=== PATIENT | female | born 1950 | race African-American/Black ===

== ENCOUNTER 2021-05-28 13:12 | Observation (INO) ==
[2021-05-28 13:16] VITALS: BMI 25.8
[2021-05-28] MEDS ORDERED: NS 1,000 ML IV 1,000 ML ONE (13:21)
[2021-05-28] MEDS ORDERED: PROTONIX INJ 40 MG VIAL IVP ONE (14:12)
[2021-05-28] MEDS ORDERED: ZOFRAN INJ 4 MG VIAL IVP ONE (14:12)
--- NOTE | 2021-05-28 14:12 | DR.DIARMA ---
HPI <Beranrd Man - Last Filed: 05/30/21 08:18> Time seen Time Seen by Provider: 05/28/21 13:58 PCP Primary Care Physician: EVANGELISTA Complaint Chief Complaint Doctor Comments: 71 y/o female presents for evaluation. Seen here 3 days ago, was + for Covid then. Has been ill x 2 weeks. + nausea, vomiting, diarrhea. Unable to keep food down. Denies abdominal pain. Having weakness, low grade temp, chills. Hasa slight cough, non productive. Denies dyspnea. Had low potassium here 3 days ago. Was given IV, PO potassium, passed an intact pill today. Chief Complaint:: PT C/O N/V/D THAT HAS BEEN GOING ON FOR APPROX 2 WEELS. PATIENT CAME TO ED THIS PAST THURSDAY AND REC'D FLUIDS AND WAS SENT HOME. PATIENTS FAMILY STATES PATIENT IS STARVING AND UNABLE TO KEEP ANYTHING IN HER. PATIENT IS ALSO N OTED TO BE RUNNING LOW GRADE TEMP. PATIENT STATES SHE JUST WANTS THE INFUSION AND GET BETTER COVID-19 Coronavirus risk:travel/contact w/high risk person: No Has patient experienced Coronavirus symptoms: Yes Coronavirus symptoms experienced: Fever and Coughing Reviewed Nurses notes reviewed: Yes Source History Provided: Patient and Family Member Mode of Arrival Mode of Arrival: Wheelchair Timing Onset of Chief Complaint: 05/14/21 Came on: Gradually PMH <Bernard Seymourmary - Last Filed: 05/30/21 08:18> PMH Past Medical History: Yes Past Medical History: Hypertension Past Surgical History: No Family History History of Family Medical Conditions: No Social History Does any household member use tobacco: No Alcohol Use: None Do you use any recreational Drugs:: No Lives With: Family Lives Where: Home Travel Risk Coronavirus risk:travel/contact w/high risk person: No Has patient experienced Coronavirus symptoms: No Infectious screening In the last 2 months have you had wt loss of >10#?: NO Have you had fever, night sweats or hemotysis?: No Have you traveled outside the country in the last 6 months?: No Isolation: Droplet ROS <Bernard Seymourmary - Last Filed: 05/30/21 08:18> Review of Systems Constitutional: Chills, Fever and Weakness Eyes: No Symptoms Reported ENTM: No Symptoms Reported Respiratoy: Non-Productive Cough; negative Short of Breath Cardiovascular: No Symptoms Reported Gastrointestinal/Abdominal: Diarrhea, Nausea and Vomiting Genitourinary: No Symptoms Reported Neurological: Weakness Musculoskeletal: No Symptoms Reported Integumentary: No Symptoms Reported Hematologic/Lymphatic: No Symptoms Reported Psychiatric: No Symptoms Reported All Other Systems: Reviewed and Negative PE <Bernard Donovan - Last Filed: 05/30/21 08:18> Vital Signs Vitals: Temperature 99.7 F Pulse Rate 105 Respiratory Rate 21 Blood Pressure 125/60 O2 Sat by Pulse Oximetry 95 General Limitations: No Limitations General Appearance: Alert and In No Apparent Distress Head Head Exam: Normal Inspection Eyes Eye exam: Normal Appearance, PERRL and EOMI ENT ENT Exam: Normal Exam and Mucous Membranes Moist Neck Neck Exam: Normal Inspection and Full ROM Chest Chest Inspection: Normal Inspection Respiratory Respiratory Exam: Normal Lung Sounds Bilat; negative Accessory Muscle Use and Respiratory Distress Respiratory Exam: Bilateral: Clear to Auscultation Cardiovascular Cardiovascular Exam: Regular Rate, Normal Rhythm and Normal Heart Sounds Abdominal Exam Abdominal Exam: Normal Inspection, Normal Bowel Sounds and Soft; negative Tenderness Extremeties Extremities Exam: Normal Inspection; negative Edema Back Back Exam: Normal Inspection; negative (R) CVA Tenderness and (L) CVA Tenderness Neurologic Neurological Exam: Alert, Oriented X3 and CN II-XII Intact; negative Motor Sensory Deficit Psychiatric Psychiatric Exam: Normal Affect Skin Skin Exam: Warm <Bonita Robison - Last Filed: 05/28/21 21:40> Vital Signs Vitals: Temperature 99.7 F Pulse Rate 105 Respiratory Rate 21 Blood Pressure 125/60 O2 Sat by Pulse Oximetry 95 [facility] <Bernard Donovan - Last Filed: 05/30/21 08:18> Differential Diagnosis Differential Diagnosis: Diarrhea Bacterial, Diarrhea Viral and Other (comments) (dehydration, electrolyte disorder) COURSE <Bernardhoward Man - Last Filed: 05/30/21 08:18> Treatment Treatment: Pt ill x 2 weeks, recently Covid +. Having profuse diarrhea. W/u initiiated. Given IV fluids. CT shows diffuse colitis. Discussed with covering attending, will be admitted. Was signed over to Dr Robison for admission orders. <Bonita Robison - Last Filed: 05/28/21 21:40> Treatment Treatment: [address] Man; pt needs admission orders; Dr Harris aware of admission. 2136 spoke with daughter and pt explaining results and admission for fluids and abx; they both report understanding. ROR <Bernard Man - Last Filed: 05/30/21 08:18> Labs Reviewed Laboratory Results Reviewed?: Yes Result Diagrams: 05/30/21 05:24 05/30/21 05:24 Laboratory: 05/28/21 15:10 Urine,Catheterized Urine Culture - Preliminary WBC 7.2 X10^3/uL (3.6-10.0) 05/28/21 14:58 RBC 4.09 X10^6/uL (3.5-5.4) 05/28/21 14:58 Hgb 11.6 g/dL (12.0-16.0) L 05/28/21 14:58 Hct 34.5 % (36.0-47.0) L 05/28/21 14:58 MCV 84.5 fL (80.0-100.0) 05/28/21 14:58 MCH 28.3 pg (27.0-34.0) 05/28/21 14:58 MCHC 33.5 g/dL (33.0-35.0) 05/28/21 14:58 RDW 14.8 % (11.6-16.5) 05/28/21 14:58 Plt Count 162 X10^3/uL (150.0-450.0) 05/28/21 14:58 Plt Count Comment Adequate (ADEQUATE) 05/28/21 14:58 MPV 8.7 fL (7.4-11.0) 05/28/21 14:58 Neut % (Auto) 68.6 % (42.0-75.0) 05/28/21 14:58 Lymph % (Auto) 6.1 % (21.0-51.0) L 05/28/21 14:58 Sebastian % (Auto) 22.4 % (0.0-13.0) H 05/28/21 14:58 Eos % (Auto) 0.3 % (0.9-2.9) L 05/28/21 14:58 Baso % (Auto) 2.6 % (0.2-1.0) H 05/28/21 14:58 Neut # (Auto) 4.9 x10^3/uL (2.2-4.8) H 05/28/21 14:58 Lymph # (Auto) 0.4 X10^3/uL (1.3-2.9) L 05/28/21 14:58 Sebastian # (Auto) 1.6 x10^3/uL (0.3-0.8) H 05/28/21 14:58 Eos # (Auto) 0.0 x10^3/uL (0.0-0.2) 05/28/21 14:58 Baso # (Auto) 0.2 X10^3/uL (0.0-0.1) H 05/28/21 14:58 Absolute Nucleated RBC 0.1 /100WBC 05/28/21 14:58 Total Counted 100 05/28/21 14:58 Neutrophils % (Manual) 65 % (39-76) 05/28/21 14:58 Lymphocytes % (Manual) 19 % (13-43) 05/28/21 14:58 Monocytes % (Manual) 16 % (4-9) H 05/28/21 14:58 Plt Morphology Comment Normal (NORMAL) 05/28/21 14:58 RBC Morphology Normal (NORMAL) 05/28/21 14:58 Sodium 136 mmol/L (136-145) 05/28/21 14:58 Corrected Sodium TNP 05/28/21 14:58 Potassium 4.3 mmol/L (3.5-5.1) 05/28/21 14:58 Chloride 101 mmol/L (98-107) 05/28/21 14:58 Carbon Dioxide 28.2 mmol/L (21-32) 05/28/21 14:58 BUN 12 mg/dL (7-18) 05/28/21 14:58 Creatinine 0.75 mg/dL (0.55-1.02) 05/28/21 14:58 Est GFR (MDRD) Af Amer > 60 (>60) 05/28/21 14:58 Est GFR (MDRD) Non-Af > 60 (>60) 05/28/21 14:58 Glucose 91 mg/dL (65-99) 05/28/21 14:58 Calcium 8.0 mg/dL (8.5-10.1) L 05/28/21 14:58 Corrected Calcium 9.6 mg/dL (8.5-10.1) 05/28/21 14:58 Total Bilirubin 1.80 mg/dL (0.2-1.0) H 05/28/21 14:58 AST 31 Units/L (15-37) 05/28/21 14:58 ALT 16 Units/L (12-78) 05/28/21 14:58 Alkaline Phosphatase 78 Units/L (46-116) 05/28/21 14:58 Total Protein 5.4 g/dL (6.4-8.2) L 05/28/21 14:58 Albumin 2.0 g/dL (3.4-5.0) L 05/28/21 14:58 Globulin 3.4 g/dL (2.5-4.5) 05/28/21 14:58 Albumin/Globulin Ratio 0.6 Ratio (1.1-2.1) L 05/28/21 14:58 Lipase 22 Units/L (73-393) L 05/28/21 14:58 Specimen Type Catherized urine 05/28/21 15:10 Urine Color [place] (YELLOW) 05/28/21 15:10 Urine Appearance Clear (CLEAR) 05/28/21 15:10 Urine pH 5.0 (5.0 - 8.0) 05/28/21 15:10 Ur Specific [place] 1.020 (1.000-1.030) 05/28/21 15:10 Urine Protein 3+ (NEGATIVE) 05/28/21 15:10 Urine Glucose (UA) Negative (NEGATIVE) 05/28/21 15:10 Urine Ketones 1+ (NEGATIVE) 05/28/21 15:10 Urine Occult Blood 1+ (NEGATIVE) 05/28/21 15:10 Urine Nitrite Positive (NEGATIVE) 05/28/21 15:10 Urine Bilirubin 2+ (NEGATIVE) 05/28/21 15:10 Urine Urobilinogen 3+ (NORMAL) 05/28/21 15:10 Ur Leukocyte Esterase 1+ (NEGATIVE) 05/28/21 15:10 Urine RBC 0-2 /HPF (0-3) 05/28/21 15:10 Urine WBC 5-10 /HPF (0-5) A 05/28/21 15:10 Ur Squamous Epith Cells Rare /HPF (NEGATIVE) 05/28/21 15:10 Amorphous Sediment 1+ /HPF (NEGATIVE) 05/28/21 15:10 Urine Bacteria Trace /HPF (NEGATIVE) 05/28/21 15:10 Urine Mucus Few /HPF (NEGATIVE) 05/28/21 15:10 Ur Culture Indicated? Yes/culture set up 05/28/21 15:10 <Bonita Robison - Last Filed: 05/28/21 21:40> Labs Reviewed Laboratory Results Reviewed?: Yes Laboratory: 05/28/21 15:10 Urine,Catheterized Urine Culture - Preliminary WBC 7.2 X10^3/uL (3.6-10.0) 05/28/21 14:58 RBC 4.09 X10^6/uL (3.5-5.4) 05/28/21 14:58 Hgb 11.6 g/dL (12.0-16.0) L 05/28/21 14:58 Hct 34.5 % (36.0-47.0) L 05/28/21 14:58 MCV 84.5 fL (80.0-100.0) 05/28/21 14:58 MCH 28.3 pg (27.0-34.0) 05/28/21 14:58 MCHC 33.5 g/dL (33.0-35.0) 05/28/21 14:58 RDW 14.8 % (11.6-16.5) 05/28/21 14:58 Plt Count 162 X10^3/uL (150.0-450.0) 05/28/21 14:58 Plt Count Comment Adequate (ADEQUATE) 05/28/21 14:58 MPV 8.7 fL (7.4-11.0) 05/28/21 14:58 Neut % (Auto) 68.6 % (42.0-75.0) 05/28/21 14:58 Lymph % (Auto) 6.1 % (21.0-51.0) L 05/28/21 14:58 Sebastian % (Auto) 22.4 % (0.0-13.0) H 05/28/21 14:58 Eos % (Auto) 0.3 % (0.9-2.9) L 05/28/21 14:58 Baso % (Auto) 2.6 % (0.2-1.0) H 05/28/21 14:58 Neut # (Auto) 4.9 x10^3/uL (2.2-4.8) H 05/28/21 14:58 Lymph # (Auto) 0.4 X10^3/uL (1.3-2.9) L 05/28/21 14:58 Sebastian # (Auto) 1.6 x10^3/uL (0.3-0.8) H 05/28/21 14:58 Eos # (Auto) 0.0 x10^3/uL (0.0-0.2) 05/28/21 14:58 Baso # (Auto) 0.2 X10^3/uL (0.0-0.1) H 05/28/21 14:58 Absolute Nucleated RBC 0.1 /100WBC 05/28/21 14:58 Total Counted 100 05/28/21 14:58 Neutrophils % (Manual) 65 % (39-76) 05/28/21 14:58 Lymphocytes % (Manual) 19 % (13-43) 05/28/21 14:58 Monocytes % (Manual) 16 % (4-9) H 05/28/21 14:58 Plt Morphology Comment Normal (NORMAL) 05/28/21 14:58 RBC Morphology Normal (NORMAL) 05/28/21 14:58 Sodium 136 mmol/L (136-145) 05/28/21 14:58 Corrected Sodium TNP 05/28/21 14:58 Potassium 4.3 mmol/L (3.5-5.1) 05/28/21 14:58 Chloride 101 mmol/L (98-107) 05/28/21 14:58 Carbon Dioxide 28.2 mmol/L (21-32) 05/28/21 14:58 BUN 12 mg/dL (7-18) 05/28/21 14:58 Creatinine 0.75 mg/dL (0.55-1.02) 05/28/21 14:58 Est GFR (MDRD) Af Amer > 60 (>60) 05/28/21 14:58 Est GFR (MDRD) Non-Af > 60 (>60) 05/28/21 14:58 Glucose 91 mg/dL (65-99) 05/28/21 14:58 Calcium 8.0 mg/dL (8.5-10.1) L 05/28/21 14:58 Corrected Calcium 9.6 mg/dL (8.5-10.1) 05/28/21 14:58 Total Bilirubin 1.80 mg/dL (0.2-1.0) H 05/28/21 14:58 AST 31 Units/L (15-37) 05/28/21 14:58 ALT 16 Units/L (12-78) 05/28/21 14:58 Alkaline Phosphatase 78 Units/L (46-116) 05/28/21 14:58 Total Protein 5.4 g/dL (6.4-8.2) L 05/28/21 14:58 Albumin 2.0 g/dL (3.4-5.0) L 05/28/21 14:58 Globulin 3.4 g/dL (2.5-4.5) 05/28/21 14:58 Albumin/Globulin Ratio 0.6 Ratio (1.1-2.1) L 05/28/21 14:58 Lipase 22 Units/L (73-393) L 05/28/21 14:58 Specimen Type Catherized urine 05/28/21 15:10 Urine Color [place] (YELLOW) 05/28/21 15:10 Urine Appearance Clear (CLEAR) 05/28/21 15:10 Urine pH 5.0 (5.0 - 8.0) 05/28/21 15:10 Ur Specific [place] 1.020 (1.000-1.030) 05/28/21 15:10 Urine Protein 3+ (NEGATIVE) 05/28/21 15:10 Urine Glucose (UA) Negative (NEGATIVE) 05/28/21 15:10 Urine Ketones 1+ (NEGATIVE) 05/28/21 15:10 Urine Occult Blood 1+ (NEGATIVE) 05/28/21 15:10 Urine Nitrite Positive (NEGATIVE) 05/28/21 15:10 Urine Bilirubin 2+ (NEGATIVE) 05/28/21 15:10 Urine Urobilinogen 3+ (NORMAL) 05/28/21 15:10 Ur Leukocyte Esterase 1+ (NEGATIVE) 05/28/21 15:10 Urine RBC 0-2 /HPF (0-3) 05/28/21 15:10 Urine WBC 5-10 /HPF (0-5) A 05/28/21 15:10 Ur Squamous Epith Cells Rare /HPF (NEGATIVE) 05/28/21 15:10 Amorphous Sediment 1+ /HPF (NEGATIVE) 05/28/21 15:10 Urine Bacteria Trace /HPF (NEGATIVE) 05/28/21 15:10 Urine Mucus Few /HPF (NEGATIVE) 05/28/21 15:10 Ur Culture Indicated? Yes/culture set up 05/28/21 15:10 XRAY XRAY Interpreted by: Radiologist X-ray Results: abd xr: 1. Inflamed or dilated loops of bowel, possibly reflecting a colitis, versus developing small bowel obstruction. Correlate clinically and follow-up with CT abdomen and pelvis to better evaluate. 2. Prominent heart size. ct abd/pelvis: 1. Diffuse circumfrential thickening of up to 6.4 cm dilated air and fluid-filled large bowel loops and rectum consistent with pancolitis with impending diarrhea; DDX includes ulcerative colitis and pseudomembranous colitis. Clinical correlation is advised. 2. No evidence for pneumatosis intestinalis, portal venous air or free intraperitoneal air. 3. Small collapsed hiatal hernia. 4. No evidence for bowel herniation, bowel obstruction, appendicitis or diverticulitis. 5. 3 tiny nonobstructing right lower pole renal calculi. 6. No evidence for pyelonephritis, ureteral stones or obstructive uropathy. 7. Splenomegaly (17.2 cm CC); nonspecific finding; rule out hypersplenism. 8. Approximately 2 cm x 1.6 cm x 2 cm enhancing lesion seen in the inferior lateral aspect of the spleen; etiology indeterminate, presumed hemangioma or other splenic enhancing mass lesion. 9. Extensive cholelithiasis (with gallstones filling the gallbladder lumen) in keeping with sequela of chronic cholecystitis, with gallbladder wall thickening which may represent acute cholecystitis in the appropriate clinical setting. Consider follow-up evaluation with HIDA scan to rule out cystic duct obstruction and acute cholecystitis as clinically warranted. 10. No free fluid, free air, mass lesions, or lymphadenopathy seen. 11. Chronic appearing mild to moderate anterior wedge compression fractures of the superior endplates of the T12, L2, and L4 vertebral bodies chronic appearing posterior superior bony retropulsion at the level L4, contributing to severe lateral recess stenosis, spinal canal stenosis, and spinal canal stenosis (together with hypertrophic DJD of the facet joints) with potential for neural impingements. 12. Status post cholecystectomy and hysterectomy. Opioid <Bernard Man - Last Filed: 05/30/21 08:18> Opioid Risk Tool Age ([place]udwig box if 16-45): No History of Preadolescent Sexual Abuse: No Total: 0 Total Score Risk Category: Low Risk Copyright: [employer] predicting aberrant behaviors <Bonita Robison - Last Filed: 05/28/21 21:40> Opioid Risk Tool Total: 0 Total Score Risk Category: Low Risk <Bernard Donovan - Last Filed: 05/30/21 08:18> Diagnosis Discharge Problem: Acute dehydration, Gastroenteritis due to COVID-19 virus, Pancolitis, Cholecystitis, chronic, COVID-19 DJD (degenerative joint disease), lumbar Qualifiers: Spinal osteoarthritis complication: without myelopathy or radiculopathy Qualified Code(s): M47.816 - Spondylosis without myelopathy or radiculopathy, lumbar region Instructions Forms: [facility] Patient Portal Social Distancing
[2021-05-28] MEDS ORDERED: NS 500 ML IV 500 ML IV ONE (14:13)
[2021-05-28] MEDS ORDERED: PROTONIX INJ 40 MG VIAL ONE (14:26)
[2021-05-28] MEDS ORDERED: ZOFRAN INJ 4 MG VIAL ONE (14:26)
[2021-05-28 15:08] LABS: BASOPHILS # (AUTO) 0.2 X10^3/uL (0.0-0.1); BASOPHILS % (AUTO) 2.6 % (0.2-1.0); EOSINOPHILS % (AUTO) 0.3 % (0.9-2.9); HEMATOCRIT 34.5 % (36.0-47.0); HEMOGLOBIN 11.6 g/dL (12.0-16.0); LYMPHOCYTES # (AUTO) 0.4 X10^3/uL (1.3-2.9); LYMPHOCYTES % (AUTO) 6.1 % (21.0-51.0); MEAN CORPUSCULAR HEMOGLOBIN 28.3 pg (27.0-34.0); MEAN CORPUSCULAR HGB CONC 33.5 g/dL (33.0-35.0); MEAN CORPUSCULAR VOLUME 84.5 fL (80.0-100.0); MEAN PLATELET VOLUME 8.7 fL (7.4-11.0); MONOCYTES # (AUTO) 1.6 x10^3/uL (0.3-0.8); MONOCYTES % (AUTO) 22.4 % (0.0-13.0); NEUTROPHILS # (AUTO) 4.9 x10^3/uL (2.2-4.8); NEUTROPHILS % (AUTO) 68.6 % (42.0-75.0); PLATELET COUNT 162 X10^3/uL (150.0-450.0); RED BLOOD COUNT 4.09 X10^6/uL (3.5-5.4); RED CELL DISTRIBUTION WIDTH 14.8 % (11.6-16.5); WHITE BLOOD COUNT 7.2 X10^3/uL (3.6-10.0)
[2021-05-28 15:24] LABS: ALANINE AMINOTRANSFERASE 16 Units/L (12-78); ALKALINE PHOSPHATASE 78 Units/L (46-116); ASPARTATE AMINO TRANSFERASE 31 Units/L (15-37); BLOOD UREA NITROGEN 12 mg/dL (7-18); CARBON DIOXIDE 28.2 mmol/L (21-32); CHLORIDE 101 mmol/L (98-107); COR CA(FOR HYPOALB) 9.6 mg/dL (8.5-10.1); CREATININE 0.75 mg/dL (0.55-1.02); LIPASE 22 Units/L (73-393); SODIUM 136 mmol/L (136-145); TOTAL PROTEIN 5.4 g/dL (6.4-8.2); eGFR NON BLACK RACES > 60 (>60)
[2021-05-28 15:31] LABS: PLATELET MORPHOLOGY COMMENT NORMAL (NORMAL)
[2021-05-28 15:35] LABS: BILIRUBIN,URINE 2+ (NEGATIVE); BLOOD/HEMOGLOBIN,URINE 1+ (NEGATIVE); GLUCOSE, URINE NEGATIVE (NEGATIVE); KETONES,URINE 1+ (NEGATIVE); LEUKOCYTE ESTERASE ,URINE 1+ (NEGATIVE); NITRITES,URINE POSITIVE (NEGATIVE); PROTEIN,URINE 3+ (NEGATIVE); UROBILINOGEN,URINE 3+ (NORMAL)
[2021-05-28 15:47] LABS: APPEARANCE,URINE CLEAR (CLEAR); COLOR,URINE AMBER (YELLOW)
[2021-05-28 15:48] LABS: BACTERIA,URINE TRACE /HPF (NEGATIVE); RBC,URINE 0-2 /HPF (0-3); SQUAMOUS EPITHELIAL CELL,UR RARE /HPF (NEGATIVE)
--- NOTE | 2021-05-28 15:48 | RAD ---
Abdomen radiograph series-supine upright and chest three viewsIndication: Nausea, vomiting and diarrhea.COMPARISONDecember 2020FINDINGSThere is no pneumothorax. Heart size is prominent. Monitoring leads obscure minimal detail. AC joint glenohumeral joint DJD noted. There is dilated loops of bowel, possibly small-bowel in the abdomen, versus thick-walled edematous colon.IMPRESSION1. Inflamed or dilated loops of bowel, possibly reflecting a colitis, versus developing small bowel obstruction. Correlate clinically and follow-up with CT abdomen and pelvis to better evaluate.2. Prominent heart size.Electronically signed by: KASHIF APONTE (May 28, 2021 15:46:27)
[2021-05-28] MEDS ORDERED: NS 100 ML IV 100 ML ONE (17:53)
--- NOTE | 2021-05-28 19:09 | CT ---
EXAM: CT ABDOMEN AND PELVIS WITH INTRAVENOUS CONTRASTHISTORY: Nausea. Vomiting. Diarrhea. Low-grade fever.TECHNIQUE: Spiral axial CT images are obtained through the abdomen and pelvis with the administration of oral contrast and intravenous contrast. Additional coronal and sagittal reformatted images are reconstructed.DOSIMETRY: Total DLP 364.1 mGycm; CTDI 18 mGyCOMPARISON: None available.FINDINGS:GASTROINTESTINAL TRACT: Diffuse circumfrential thickening of up to 6.4 cm dilated air and fluid-filled large bowel loops and rectum consistent with pancolitis with impending diarrhea; DDX includes ulcerative colitis and pseudomembranous colitis. Clinical correlation is advised. No evidence for pneumatosis intestinalis, portal venous air or free intraperitoneal air. There is a small collapsed hiatal hernia. No evidence for bowel herniation, bowel obstruction, or diverticulitis. A normal-appearing appendix is seen.GENITOURINARY SYSTEM: Approximately 2 cm right lower pole renal cyst noted. There are 3 tiny nonobstructing right lower pole renal calculi. The kidneys are otherwise unremarkable. There is no ureteral calculus or stigmata of obstructive uropathy. The urinary bladder is grossly unremarkable for a non-dedicated exam.CT ABDOMEN: Splenomegaly (17.2 cm CC); nonspecific finding; rule out hypersplenism. Approximately 2 cm x 1.6 cm x 2 cm enhancing lesion seen in the inferior lateral aspect of the spleen; etiology indeterminate, presumed hemangioma or other splenic enhancing mass lesion. There is extensive cholelithiasis (with gallstones filling the gallbladder lumen) in keeping with sequela of chronic cholecystitis, with gallbladder wall thickening which may represent acute cholecystitis in the appropriate clinical setting. There is an approximately 2 cm right hepatic dome cyst. The pancreas, adrenal glands, and inferior vena cava are within normal limits for a CT scan. There is no intra-abdominal or retroperitoneal lymphadenopathy, free fluid, or free air seen. No abdominal herniation is noted.CT PELVIS: No pelvic sidewall or inguinal lymphadenopathy is seen. No inguinal herniation is noted. No free fluid or free air is seen. Status post hysterectomy.BONES AND JOINTS: Severe multilevel DDD is seen throughout the lumbar spine with resultant lumbar levoscoliosis. There are chronic appearing mild to moderate anterior wedge compression fractures of the superior endplates of the T12, L2, and L4 vertebral bodies chronic appearing posterior superior bony retropulsion at the level L4, contributing to severe lateral recess stenosis, spinal canal stenosis, and spinal canal stenosis (together with hypertrophic DJD of the facet joints) with potential for neural impingements. The visualized bony structures are otherwise within normal limits.LUNG BASES: Cardiomegaly and diffusely prominent pulmonary vascularity and interstitial markings, consistent with mild CHF or volume overload in the appropriate clinical setting. Clinical correlation is advised and appropriate follow-up evaluation is recommended.IMPRESSION:1. Diffuse circumfrential thickening of up to 6.4 cm dilated air and fluid-filled large bowel loops and rectum consistent with pancolitis with impending diarrhea; DDX includes ulcerative colitis and pseudomembranous colitis. Clinical correlation is advised.2. No evidence for pneumatosis intestinalis, portal venous air or free intraperitoneal air.3. Small collapsed hiatal hernia.4. No evidence for bowel herniation, bowel obstruction, appendicitis or diverticulitis.5. 3 tiny nonobstructing right lower pole renal calculi.6. No evidence for pyelonephritis, ureteral stones or obstructive uropathy.7. Splenomegaly (17.2 cm CC); nonspecific finding; rule out hypersplenism.8. Approximately 2 cm x 1.6 cm x 2 cm enhancing lesion seen in the inferior lateral aspect of the spleen; etiology indeterminate, presumed hemangioma or other splenic enhancing mass lesion.9. Extensive cholelithiasis (with gallstones filling the gallbladder lumen) in keeping with sequela of chronic cholecystitis, with gallbladder wall thickening which may represent acute cholecystitis in the appropriate clinical setting. Consider follow-up evaluation with HIDA scan to rule out cystic duct obstruction and acute cholecystitis as clinically warranted.10. No free fluid, free air, mass lesions, or lymphadenopathy seen.11. Chronic appearing mild to moderate anterior wedge compression fractures of the superior endplates of the T12, L2, and L4 vertebral bodies chronic appearing posterior superior bony retropulsion at the level L4, contributing to severe lateral recess stenosis, spinal canal stenosis, and spinal canal stenosis (together with hypertrophic DJD of the facet joints) with potential for neural impingements.12. Status post cholecystectomy and hysterectomy.Electronically signed by: Aleksandra Bahena (May 28, 2021 19:07:49)
[2021-05-28] MEDS ORDERED: FLAGYL IV PREMIX 500 MG BAG 500 MG/100 ML BAG IV ONE (20:19)
[2021-05-28] MEDS: FLAGYL IV PREMIX 500 MG BAG 500 MG/100 ML BAG IV SCH (20:24)
[2021-05-28] MEDS ORDERED: CIPRO IV 400 MG PREMIX* 400 MG/200 ML IV.SOLN. IV ONE (21:27)
[2021-05-28] MEDS: CIPRO IV 400 MG PREMIX* 400 MG/200 ML IV.SOLN. IV SCH (21:32)
[2021-05-28] MEDS ORDERED: ZOFRAN INJ 4 MG VIAL IVP PRN (21:34)
[2021-05-29 04:48] LABS: BASOPHILS % (AUTO) 0.1 % (0.2-1.0); EOSINOPHILS % (AUTO) 0.5 % (0.9-2.9); HEMATOCRIT 31.1 % (36.0-47.0); HEMOGLOBIN 10.4 g/dL (12.0-16.0); LYMPHOCYTES # (AUTO) 0.3 X10^3/uL (1.3-2.9); LYMPHOCYTES % (AUTO) 4.3 % (21.0-51.0); MEAN CORPUSCULAR HGB CONC 33.3 g/dL (33.0-35.0); MEAN CORPUSCULAR VOLUME 84.1 fL (80.0-100.0); MONOCYTES # (AUTO) 1.5 x10^3/uL (0.3-0.8); MONOCYTES % (AUTO) 20.4 % (0.0-13.0); NEUTROPHILS # (AUTO) 5.6 x10^3/uL (2.2-4.8); NEUTROPHILS % (AUTO) 74.7 % (42.0-75.0); PLATELET COUNT 132 X10^3/uL (150.0-450.0); RED CELL DISTRIBUTION WIDTH 14.8 % (11.6-16.5); WHITE BLOOD COUNT 7.5 X10^3/uL (3.6-10.0)
[2021-05-29 05:03] LABS: ALANINE AMINOTRANSFERASE 12 Units/L (12-78); ALBUMIN 1.7 g/dL (3.4-5.0); ALKALINE PHOSPHATASE 67 Units/L (46-116); ASPARTATE AMINO TRANSFERASE 25 Units/L (15-37); BLOOD UREA NITROGEN 14 mg/dL (7-18); CALCIUM 7.9 mg/dL (8.5-10.1); CARBON DIOXIDE 26.1 mmol/L (21-32); CHLORIDE 101 mmol/L (98-107); COR CA(FOR HYPOALB) 9.7 mg/dL (8.5-10.1); CREATININE 0.71 mg/dL (0.55-1.02); SODIUM 136 mmol/L (136-145); TOTAL PROTEIN 4.6 g/dL (6.4-8.2); eGFR NON BLACK RACES > 60 (>60)
[2021-05-29] MEDS ORDERED: NS 1,000 ML IV 1,000 ML ONE (05:12)
[2021-05-29] MEDS: NS 1,000 ML IV 1,000 ML IV SCH ×4 (05:16→21:40)
[2021-05-29 05:31] LABS: PLATELET MORPHOLOGY COMMENT NORMAL (NORMAL)
[2021-05-29] MEDS ORDERED: CIPRO IV 400 MG PREMIX* 400 MG/200 ML IV.SOLN. IV ONE (09:33)
[2021-05-29] MEDS: CIPRO IV 400 MG PREMIX* 400 MG/200 ML IV.SOLN. IV SCH ×2 (09:39→20:18)
[2021-05-29] MEDS: FLAGYL IV PREMIX 500 MG BAG 500 MG/100 ML BAG IV SCH ×2 (09:45→20:18)
[2021-05-29 10:43] LABS: CRYPTOSPORIDIUM PARVUM ANTIGEN NEGATIVE (NEGATIVE); GIARDIA LAMBLIA ANTIGEN NEGATIVE (NEGATIVE)
[2021-05-29] MEDS: IVERMECTIN PO SCH (11:33)
[2021-05-29] MEDS: SOLU-Medrol 125 MG VIAL IVP SCH ×3 (11:33→20:17)
[2021-05-29] MEDS ORDERED: PHARMACY CONSULT - IVERMECTIN XX SCH (12:03)
[2021-05-29] MEDS ORDERED: NS 1,000 ML IV 1,000 ML IV SCH (12:03)
[2021-05-29] MEDS ORDERED: PHARMACY CONSULT - LOVENOX XX SCH (12:03)
[2021-05-29] MEDS ORDERED: PERIACTIN TAB 4 MG PO PRN (12:03)
[2021-05-29] MEDS: ASCORBIC ACID INJ MULTI-DOSE VIAL 1,500 MG in NS 100 ML IV 100 ML IV SCH ×3 (12:52→20:17)
[2021-05-29] MEDS: PEPCID TAB 40 MG PO SCH ×2 (12:53→20:15)
[2021-05-29] MEDS: PROTONIX INJ 40 MG VIAL IVP SCH ×2 (12:53→20:16)
[2021-05-29] MEDS: LIPITOR TAB 80 MG PO SCH (12:53)
[2021-05-29] MEDS: CYTOTEC PO SCH ×4 (12:53→20:19)
[2021-05-29] MEDS: THIAMINE HCL INJ IVP SCH ×2 (12:53→20:19)
[2021-05-29] MEDS: VITAMIN A PO SCH (12:54)
[2021-05-29] MEDS: VITAMIN D (1.25MG) PO SCH (12:54)
[2021-05-29] MEDS: ZINC SULFATE PO SCH ×2 (12:54→20:15)
[2021-05-29] MEDS ORDERED: BENADRYL INJ 50 MG VIAL IVP ONE (13:06)
[2021-05-29 13:16] LABS: ALANINE AMINOTRANSFERASE 13 Units/L (12-78); ALBUMIN 1.6 g/dL (3.4-5.0); ALKALINE PHOSPHATASE 68 Units/L (46-116); ASPARTATE AMINO TRANSFERASE 27 Units/L (15-37); BLOOD UREA NITROGEN 16 mg/dL (7-18); CARBON DIOXIDE 26.1 mmol/L (21-32); CHLORIDE 103 mmol/L (98-107); COR CA(FOR HYPOALB) 9.9 mg/dL (8.5-10.1); CREATININE 0.65 mg/dL (0.55-1.02); SODIUM 135 mmol/L (136-145); TOTAL PROTEIN 4.6 g/dL (6.4-8.2); eGFR NON BLACK RACES > 60 (>60)
[2021-05-29] MEDS: LOVENOX INJ 60 MG SYR SC SCH ×2 (13:55→20:18)
[2021-05-29] MEDS: VANCOMYCIN HCL 250 MG CAP PO SCH ×2 (17:43→20:15)
[2021-05-29] MEDS ORDERED: PULMICORT NEB TX 0.5 MG NEB ONE (19:57)
[2021-05-29] MEDS ORDERED: BROVANA ONE (19:57)
[2021-05-29] MEDS: MELATONIN PO SCH (20:15)
[2021-05-29] MEDS: BROVANA IN SCH (20:46)
[2021-05-29] MEDS: PULMICORT NEB TX 0.5 MG NEB SCH (20:46)
[2021-05-30] MEDS: ASCORBIC ACID INJ MULTI-DOSE VIAL 1,500 MG in NS 100 ML IV 100 ML IV SCH ×4 (03:08→20:58)
[2021-05-30] MEDS: SOLU-Medrol 125 MG VIAL IVP SCH ×4 (03:09→21:00)
[2021-05-30 06:20] LABS: BASOPHILS % (AUTO) 0.1 % (0.2-1.0); LYMPHOCYTES # (AUTO) 0.2 X10^3/uL (1.3-2.9); LYMPHOCYTES % (AUTO) 3.8 % (21.0-51.0); MEAN CORPUSCULAR HEMOGLOBIN 28.9 pg (27.0-34.0); MEAN CORPUSCULAR HGB CONC 34.6 g/dL (33.0-35.0); MEAN CORPUSCULAR VOLUME 83.4 fL (80.0-100.0); MEAN PLATELET VOLUME 9.4 fL (7.4-11.0); MONOCYTES # (AUTO) 0.3 x10^3/uL (0.3-0.8); MONOCYTES % (AUTO) 4.4 % (0.0-13.0); NEUTROPHILS # (AUTO) 5.4 x10^3/uL (2.2-4.8); NEUTROPHILS % (AUTO) 91.7 % (42.0-75.0); PLATELET COUNT 129 X10^3/uL (150.0-450.0); RED BLOOD COUNT 3.47 X10^6/uL (3.5-5.4); RED CELL DISTRIBUTION WIDTH 14.6 % (11.6-16.5); WHITE BLOOD COUNT 5.9 X10^3/uL (3.6-10.0)
[2021-05-30] MEDS: NS 1,000 ML IV 1,000 ML IV SCH ×2 (06:35→15:16)
[2021-05-30 06:49] LABS: ALANINE AMINOTRANSFERASE 14 Units/L (12-78); ALBUMIN 1.5 g/dL (3.4-5.0); ALKALINE PHOSPHATASE 65 Units/L (46-116); ASPARTATE AMINO TRANSFERASE 27 Units/L (15-37); BLOOD UREA NITROGEN 25 mg/dL (7-18); CALCIUM 7.6 mg/dL (8.5-10.1); CARBON DIOXIDE 22.9 mmol/L (21-32); CHLORIDE 101 mmol/L (98-107); COR CA(FOR HYPOALB) 9.6 mg/dL (8.5-10.1); COR NA(FOR HYPERGLY) 134 mmol/L (136-145); CREATININE 0.67 mg/dL (0.55-1.02); SODIUM 133 mmol/L (136-145); TOTAL PROTEIN 4.5 g/dL (6.4-8.2); eGFR NON BLACK RACES > 60 (>60)
[2021-05-30 07:57] LABS: BAND NEUTROPHILS % 5 % (0-10)
[2021-05-30 07:58] LABS: PLATELET MORPHOLOGY COMMENT NORMAL (NORMAL)
[2021-05-30] MEDS: VITAMIN D (1.25MG) PO SCH (09:29)
[2021-05-30] MEDS: IVERMECTIN PO SCH (09:29)
[2021-05-30] MEDS: ZINC SULFATE PO SCH ×2 (09:29→21:01)
[2021-05-30] MEDS: PULMICORT NEB TX 0.5 MG NEB SCH ×2 (09:29→21:00)
[2021-05-30] MEDS: BROVANA IN SCH ×2 (09:29→21:00)
[2021-05-30] MEDS: CYTOTEC PO SCH ×4 (09:29→20:59)
[2021-05-30] MEDS: PROTONIX INJ 40 MG VIAL IVP SCH ×2 (09:30→21:00)
[2021-05-30] MEDS: PEPCID TAB 40 MG PO SCH ×2 (09:30→21:00)
[2021-05-30] MEDS: LOVENOX INJ 60 MG SYR SC SCH ×2 (09:30→20:59)
[2021-05-30] MEDS: LIPITOR TAB 80 MG PO SCH (09:30)
[2021-05-30] MEDS: VITAMIN A PO SCH (09:31)
[2021-05-30] MEDS: THIAMINE HCL INJ IVP SCH ×2 (09:31→21:00)
[2021-05-30] MEDS: VANCOMYCIN HCL 250 MG CAP PO SCH ×4 (09:31→21:01)
[2021-05-30] MEDS: CIPRO IV 400 MG PREMIX* 400 MG/200 ML IV.SOLN. IV SCH ×2 (10:17→20:58)
[2021-05-30 11:02] LABS: BURR CELLS PRESENT
[2021-05-30] MEDS: MELATONIN PO SCH (21:00)
[2021-05-30] MEDS: MORPHINE SULFATE INJ 2 MG INJ IVP PRN (22:23)
[2021-05-31] MEDS: NS 1,000 ML IV 1,000 ML IV SCH ×5 (00:42→21:04)
[2021-05-31] MEDS: SOLU-Medrol 125 MG VIAL IVP SCH (03:00)
[2021-05-31] MEDS: ASCORBIC ACID INJ MULTI-DOSE VIAL 1,500 MG in NS 100 ML IV 100 ML IV SCH ×4 (03:00→20:18)
[2021-05-31 05:13] LABS: BASOPHILS % (AUTO) 0.1 % (0.2-1.0); HEMATOCRIT 29.5 % (36.0-47.0); HEMOGLOBIN 10.2 g/dL (12.0-16.0); LYMPHOCYTES # (AUTO) 0.3 X10^3/uL (1.3-2.9); LYMPHOCYTES % (AUTO) 5.2 % (21.0-51.0); MEAN CORPUSCULAR HEMOGLOBIN 28.4 pg (27.0-34.0); MEAN CORPUSCULAR HGB CONC 34.5 g/dL (33.0-35.0); MEAN CORPUSCULAR VOLUME 82.4 fL (80.0-100.0); MEAN PLATELET VOLUME 9.2 fL (7.4-11.0); MONOCYTES # (AUTO) 0.2 x10^3/uL (0.3-0.8); MONOCYTES % (AUTO) 3.2 % (0.0-13.0); NEUTROPHILS # (AUTO) 5.5 x10^3/uL (2.2-4.8); NEUTROPHILS % (AUTO) 91.5 % (42.0-75.0); PLATELET COUNT 181 X10^3/uL (150.0-450.0); RED BLOOD COUNT 3.57 X10^6/uL (3.5-5.4); RED CELL DISTRIBUTION WIDTH 14.8 % (11.6-16.5)
[2021-05-31 05:28] LABS: ALANINE AMINOTRANSFERASE 11 Units/L (12-78); ALBUMIN 1.8 g/dL (3.4-5.0); ALKALINE PHOSPHATASE 65 Units/L (46-116); ASPARTATE AMINO TRANSFERASE 21 Units/L (15-37); BLOOD UREA NITROGEN 21 mg/dL (7-18); CARBON DIOXIDE 22.8 mmol/L (21-32); CHLORIDE 101 mmol/L (98-107); COR CA(FOR HYPOALB) 8.8 mg/dL (8.5-10.1); COR NA(FOR HYPERGLY) 133 mmol/L (136-145); CREATININE 0.61 mg/dL (0.55-1.02); SODIUM 132 mmol/L (136-145); TOTAL PROTEIN 4.8 g/dL (6.4-8.2); eGFR NON BLACK RACES > 60 (>60)
[2021-05-31 05:41] LABS: BAND NEUTROPHILS % 4 % (0-10); BURR CELLS PRESENT; OVALOCYTES PRESENT; PLATELET MORPHOLOGY COMMENT NORMAL (NORMAL)
[2021-05-31] MEDS: CIPRO IV 400 MG PREMIX* 400 MG/200 ML IV.SOLN. IV SCH ×2 (08:24→20:19)
[2021-05-31] MEDS: CYTOTEC PO SCH ×4 (08:26→20:19)
[2021-05-31] MEDS: VITAMIN D3 125 mcg (5,000 UNITS) PO SCH (08:27)
[2021-05-31] MEDS: VITAMIN A PO SCH (08:27)
[2021-05-31] MEDS: IVERMECTIN PO SCH (08:27)
[2021-05-31] MEDS: THIAMINE HCL INJ IVP SCH ×2 (08:28→20:20)
[2021-05-31] MEDS: ZINC SULFATE PO SCH ×2 (08:28→20:19)
[2021-05-31] MEDS: VANCOMYCIN HCL 250 MG CAP PO SCH ×4 (08:28→20:19)
[2021-05-31] MEDS: LIPITOR TAB 80 MG PO SCH (08:28)
[2021-05-31] MEDS: PROTONIX INJ 40 MG VIAL IVP SCH ×2 (08:28→20:19)
[2021-05-31] MEDS: LOVENOX INJ 60 MG SYR SC SCH ×2 (08:29→20:20)
[2021-05-31] MEDS: PEPCID TAB 40 MG PO SCH ×2 (08:29→20:19)
[2021-05-31] MEDS: MORPHINE SULFATE INJ 2 MG INJ IVP PRN ×2 (08:30→15:12)
[2021-05-31] MEDS: PULMICORT NEB TX 0.5 MG NEB SCH ×2 (09:04→21:13)
[2021-05-31] MEDS: BROVANA IN SCH ×2 (09:04→21:13)
[2021-05-31] MEDS: SOLU-Medrol 40 MG VIAL IVP SCH ×2 (13:06→21:05)
[2021-05-31] MEDS: MELATONIN PO SCH (20:19)
[2021-05-31] MEDS: RESTORIL CAP 15 MG PO PRN (20:20)
[2021-06-01] MEDS: MORPHINE SULFATE INJ 2 MG INJ IVP PRN (00:15)
[2021-06-01] MEDS: ASCORBIC ACID INJ MULTI-DOSE VIAL 1,500 MG in NS 100 ML IV 100 ML IV SCH ×4 (02:58→20:13)
[2021-06-01] MEDS: NS 1,000 ML IV 1,000 ML IV SCH ×5 (02:59→22:08)
[2021-06-01] MEDS: SOLU-Medrol 40 MG VIAL IVP SCH (05:07)
[2021-06-01] MEDS: IVERMECTIN PO SCH (09:01)
[2021-06-01] MEDS: CYTOTEC PO SCH ×4 (09:01→20:13)
[2021-06-01] MEDS: CIPRO IV 400 MG PREMIX* 400 MG/200 ML IV.SOLN. IV SCH ×2 (09:01→20:13)
[2021-06-01] MEDS: LIPITOR TAB 80 MG PO SCH (09:01)
[2021-06-01] MEDS: LOVENOX INJ 60 MG SYR SC SCH ×2 (09:02→20:15)
[2021-06-01] MEDS: PEPCID TAB 40 MG PO SCH ×2 (09:02→20:14)
[2021-06-01] MEDS: VITAMIN A PO SCH (09:03)
[2021-06-01] MEDS: BROVANA IN SCH (09:05)
[2021-06-01] MEDS: PULMICORT NEB TX 0.5 MG NEB SCH (09:05)
[2021-06-01] MEDS: PROTONIX INJ 40 MG VIAL IVP SCH ×2 (09:05→20:16)
[2021-06-01] MEDS: THIAMINE HCL INJ IVP SCH ×2 (09:06→20:15)
[2021-06-01] MEDS: ZINC SULFATE PO SCH ×2 (09:06→20:14)
[2021-06-01] MEDS: VANCOMYCIN HCL 250 MG CAP PO SCH ×4 (09:06→20:15)
[2021-06-01] MEDS: VITAMIN D3 125 mcg (5,000 UNITS) PO SCH (09:06)
[2021-06-01 10:38] LABS: BASOPHILS % (AUTO) 0.1 % (0.2-1.0); HEMATOCRIT 37.8 % (36.0-47.0); LYMPHOCYTES # (AUTO) 0.3 X10^3/uL (1.3-2.9); LYMPHOCYTES % (AUTO) 5.3 % (21.0-51.0); MEAN CORPUSCULAR HEMOGLOBIN 27.9 pg (27.0-34.0); MEAN CORPUSCULAR HGB CONC 33.1 g/dL (33.0-35.0); MEAN CORPUSCULAR VOLUME 84.2 fL (80.0-100.0); MEAN PLATELET VOLUME 8.4 fL (7.4-11.0); MONOCYTES # (AUTO) 0.2 x10^3/uL (0.3-0.8); MONOCYTES % (AUTO) 3.8 % (0.0-13.0); NEUTROPHILS # (AUTO) 5.2 x10^3/uL (2.2-4.8); NEUTROPHILS % (AUTO) 90.8 % (42.0-75.0); PLATELET COUNT 201 X10^3/uL (150.0-450.0); RED BLOOD COUNT 4.49 X10^6/uL (3.5-5.4); RED CELL DISTRIBUTION WIDTH 15.4 % (11.6-16.5); WHITE BLOOD COUNT 5.7 X10^3/uL (3.6-10.0)
[2021-06-01 10:46] LABS: HEMOGLOBIN 12.5 g/dL (12.0-16.0)
[2021-06-01 10:49] LABS: ALANINE AMINOTRANSFERASE 13 Units/L (12-78); ALBUMIN 2.2 g/dL (3.4-5.0); ALKALINE PHOSPHATASE 73 Units/L (46-116); ASPARTATE AMINO TRANSFERASE 22 Units/L (15-37); BLOOD UREA NITROGEN 15 mg/dL (7-18); CARBON DIOXIDE 22.6 mmol/L (21-32); CHLORIDE 103 mmol/L (98-107); COR CA(FOR HYPOALB) 9.4 mg/dL (8.5-10.1); COR NA(FOR HYPERGLY) 139 mmol/L (136-145); CREATININE 0.58 mg/dL (0.55-1.02); SODIUM 138 mmol/L (136-145); TOTAL PROTEIN 5.4 g/dL (6.4-8.2); eGFR NON BLACK RACES > 60 (>60)
[2021-06-01 10:55] LABS: BAND NEUTROPHILS % 2 % (0-10)
[2021-06-01 10:57] LABS: PLATELET MORPHOLOGY COMMENT NORMAL (NORMAL)
[2021-06-01] MEDS: DECADRON TAB PO SCH (14:41)
[2021-06-01] MEDS: MELATONIN PO SCH (20:14)
[2021-06-01] MEDS: RESTORIL CAP 15 MG PO PRN (20:15)
[2021-06-02] MEDS: ASCORBIC ACID INJ MULTI-DOSE VIAL 1,500 MG in NS 100 ML IV 100 ML IV SCH ×4 (03:11→20:16)
[2021-06-02] MEDS: MORPHINE SULFATE INJ 2 MG INJ IVP PRN (03:21)
[2021-06-02] MEDS: NS 1,000 ML IV 1,000 ML IV SCH ×3 (06:30→21:12)
[2021-06-02] MEDS: CIPRO IV 400 MG PREMIX* 400 MG/200 ML IV.SOLN. IV SCH ×2 (08:14→20:16)
[2021-06-02] MEDS: CYTOTEC PO SCH ×4 (08:15→20:17)
[2021-06-02] MEDS: IVERMECTIN PO SCH (08:15)
[2021-06-02] MEDS: DECADRON TAB PO SCH (08:15)
[2021-06-02] MEDS: LIPITOR TAB 80 MG PO SCH (08:16)
[2021-06-02] MEDS: PROTONIX INJ 40 MG VIAL IVP SCH ×2 (08:16→20:18)
[2021-06-02] MEDS: LOVENOX INJ 60 MG SYR SC SCH ×2 (08:16→20:17)
[2021-06-02] MEDS: PEPCID TAB 40 MG PO SCH ×2 (08:16→20:18)
[2021-06-02] MEDS: THIAMINE HCL INJ IVP SCH ×2 (08:18→20:18)
[2021-06-02] MEDS: VANCOMYCIN HCL 250 MG CAP PO SCH ×4 (08:19→20:17)
[2021-06-02] MEDS: VITAMIN D3 125 mcg (5,000 UNITS) PO SCH (08:19)
[2021-06-02] MEDS: VITAMIN A PO SCH (08:19)
[2021-06-02] MEDS: ZINC SULFATE PO SCH ×2 (08:19→20:18)
[2021-06-02 11:03] LABS: BASOPHILS % (AUTO) 0.3 % (0.2-1.0); HEMATOCRIT 36.3 % (36.0-47.0); LYMPHOCYTES # (AUTO) 0.5 X10^3/uL (1.3-2.9); LYMPHOCYTES % (AUTO) 5.8 % (21.0-51.0); MEAN CORPUSCULAR HEMOGLOBIN 28.2 pg (27.0-34.0); MEAN CORPUSCULAR HGB CONC 33.2 g/dL (33.0-35.0); MEAN CORPUSCULAR VOLUME 84.9 fL (80.0-100.0); MEAN PLATELET VOLUME 8.2 fL (7.4-11.0); MONOCYTES # (AUTO) 0.6 x10^3/uL (0.3-0.8); MONOCYTES % (AUTO) 7.2 % (0.0-13.0); NEUTROPHILS # (AUTO) 7.2 x10^3/uL (2.2-4.8); NEUTROPHILS % (AUTO) 86.7 % (42.0-75.0); PLATELET COUNT 166 X10^3/uL (150.0-450.0); RED BLOOD COUNT 4.27 X10^6/uL (3.5-5.4); RED CELL DISTRIBUTION WIDTH 14.9 % (11.6-16.5); WHITE BLOOD COUNT 8.3 X10^3/uL (3.6-10.0)
[2021-06-02 11:15] LABS: ALANINE AMINOTRANSFERASE 17 Units/L (12-78); ALBUMIN 2.1 g/dL (3.4-5.0); ALKALINE PHOSPHATASE 71 Units/L (46-116); ASPARTATE AMINO TRANSFERASE 22 Units/L (15-37); BLOOD UREA NITROGEN 13 mg/dL (7-18); CARBON DIOXIDE 22.5 mmol/L (21-32); CHLORIDE 106 mmol/L (98-107); COR CA(FOR HYPOALB) 9.5 mg/dL (8.5-10.1); CREATININE 0.62 mg/dL (0.55-1.02); SODIUM 140 mmol/L (136-145); TOTAL PROTEIN 4.4 g/dL (6.4-8.2); eGFR NON BLACK RACES > 60 (>60)
[2021-06-02] MEDS: QUESTRAN POWDER FOR ORAL SUSP PO SCH ×2 (11:20→20:17)
[2021-06-02] MEDS: VSL#3 PO SCH (11:20)
[2021-06-02] MEDS: MELATONIN PO SCH (20:17)
[2021-06-02] MEDS: RESTORIL CAP 15 MG PO PRN (20:19)
[2021-06-03] MEDS: ASCORBIC ACID INJ MULTI-DOSE VIAL 1,500 MG in NS 100 ML IV 100 ML IV SCH ×2 (03:05→09:07)
[2021-06-03] MEDS: NS 1,000 ML IV 1,000 ML IV SCH (05:04)
[2021-06-03 05:26] LABS: BASOPHILS % (AUTO) 0.1 % (0.2-1.0); EOSINOPHILS % (AUTO) 0.2 % (0.9-2.9); HEMATOCRIT 37.1 % (36.0-47.0); HEMOGLOBIN 12.4 g/dL (12.0-16.0); LYMPHOCYTES # (AUTO) 0.8 X10^3/uL (1.3-2.9); LYMPHOCYTES % (AUTO) 8.3 % (21.0-51.0); MEAN CORPUSCULAR HGB CONC 33.3 g/dL (33.0-35.0); MEAN CORPUSCULAR VOLUME 84.1 fL (80.0-100.0); MEAN PLATELET VOLUME 8.6 fL (7.4-11.0); MONOCYTES # (AUTO) 0.4 x10^3/uL (0.3-0.8); MONOCYTES % (AUTO) 4.1 % (0.0-13.0); NEUTROPHILS # (AUTO) 8.6 x10^3/uL (2.2-4.8); NEUTROPHILS % (AUTO) 87.3 % (42.0-75.0); PLATELET COUNT 181 X10^3/uL (150.0-450.0); RED BLOOD COUNT 4.41 X10^6/uL (3.5-5.4); WHITE BLOOD COUNT 9.9 X10^3/uL (3.6-10.0)
[2021-06-03 05:40] LABS: ALANINE AMINOTRANSFERASE 12 Units/L (12-78); ALBUMIN 1.8 g/dL (3.4-5.0); ALKALINE PHOSPHATASE 59 Units/L (46-116); ASPARTATE AMINO TRANSFERASE 17 Units/L (15-37); BLOOD UREA NITROGEN 12 mg/dL (7-18); CALCIUM 7.8 mg/dL (8.5-10.1); CHLORIDE 106 mmol/L (98-107); COR CA(FOR HYPOALB) 9.6 mg/dL (8.5-10.1); CREATININE 0.66 mg/dL (0.55-1.02); SODIUM 138 mmol/L (136-145); TOTAL PROTEIN 4.3 g/dL (6.4-8.2); eGFR NON BLACK RACES > 60 (>60)
[2021-06-03] MEDS ORDERED: DECADRON TAB PO SCH (09:00)
[2021-06-03] MEDS: CIPRO IV 400 MG PREMIX* 400 MG/200 ML IV.SOLN. IV SCH (09:07)
[2021-06-03] MEDS: PEPCID TAB 40 MG PO SCH (09:08)
[2021-06-03] MEDS: CYTOTEC PO SCH (09:08)
[2021-06-03] MEDS: LOVENOX INJ 60 MG SYR SC SCH (09:08)
[2021-06-03] MEDS: LIPITOR TAB 80 MG PO SCH (09:08)
[2021-06-03] MEDS: VITAMIN A PO SCH (09:09)
[2021-06-03] MEDS: PROTONIX INJ 40 MG VIAL IVP SCH (09:09)
[2021-06-03] MEDS: QUESTRAN POWDER FOR ORAL SUSP PO SCH (09:09)
[2021-06-03] MEDS: THIAMINE HCL INJ IVP SCH (09:09)
[2021-06-03] MEDS: VANCOMYCIN HCL 250 MG CAP PO SCH (09:09)
[2021-06-03] MEDS: ZINC SULFATE PO SCH (09:10)
[2021-06-03] MEDS: VSL#3 PO SCH (09:10)
[2021-06-03] MEDS: VITAMIN D3 125 mcg (5,000 UNITS) PO SCH (09:10)
[2021-06-03 11:03] VITALS: BP 114/64
== END 2021-06-03 12:10 | disposition home or self-care (01) ==
LOC: ER 13:12 → U 13:12 → ICU 05-29 10:51
PROVIDERS: ADMIT Family Medicine; ATTEND Obstetrics & Gynecology Obstetrics
DX: K81.0 Acute cholecystitis; R79.82 Elevated C-reactive protein (CRP); N39.0 Urinary tract infection, site not specified; E87.1 Hypo-osmolality and hyponatremia; E86.0 Dehydration; A04.72 Enterocolitis due to Clostridium difficile, not specified as recurrent; U07.1 COVID-19; A08.39 Other viral enteritis; I10 Essential (primary) hypertension; M47.816 Spondylosis without myelopathy or radiculopathy, lumbar region